=== PATIENT | female | born 1950 | race Caucasian/White ===

== ENCOUNTER → 2024-01-12 11:07 | Outpatient (REF) | payer MEDICARE, OTHER, SELFPAY | LOC: RAD 11:07 | PROVIDERS: ATTENDING PHYSICIAN Physician Assistant; FAMILY PHYSICIAN Nurse Practitioner | DX: I73.9 Peripheral vascular disease, unspecified (principal) | CPT/HCPCS: 93922; 93925; 93978 ==

== ENCOUNTER 2024-01-30 19:37 | Inpatient (IN) | payer MEDICARE, OTHER, SELFPAY ==
[2024-01-25 09:18] VITALS: BMI 33.5
--- NOTE | 2024-01-25 13:33 | PTCARENOTE ---
Patients 01/24 EKG abnormal- reviewed by Dr. Lyons- no additional interventions required
[2024-01-30] VITALS (15 sets, daily range): BP systolic 94–138; BP diastolic 51–91
[2024-01-30] MEDS: NSS 270 ML IV (10:47)
--- NOTE | 2024-01-30 12:52 | PTCARENOTE ---
Pt requesting something to drink since there is a delay for her procedure. Dr Lyons made aware and states pt can 8 ounces of water to drink quickly but not sipped over hours. Pt given 8 ounces of water and is currently drinking. Will continue to
monitor.
[2024-01-30 16:09] LABS: Glucose - Point of Care 112 mg/dl (70-99)
--- NOTE | 2024-01-30 17:22 | W.SUR.PREOP ---
Pre-Operative Surgical Note
-
I have examined this patient prior to the performance of the scheduled procedure.
The patient's condition is unchanged from the time of the current History and
Physical and the patient is able to undergo the scheduled procedure.
--- NOTE | 2024-01-30 18:00 | W.IMMPOSTOP ---
Surgical Immed Post Op Note
-
Primary Surgeon: Daryl Minaya III, MD
Assisting Surgeon: Jim Robert MD
Pre-op Diagnosis: L SFA in-stent restenosis
Post-op Diagnosis: L SFA in-stent restenosis
Procedure Performed: L SFA balloon angioplasty
Anesthesia Type: Light Sedation
Specimen / Cultures: NA
Estimated Blood Loss: 2cc
Complications: NA
Operative Findings:
Access obtained via right femoral artery. Wire, catheter, 6FR sheath passed serially into contralateral left common femoral artery via fluoroscopic guidance. SFA with in-stent restenosis as suspected. [id number] & [id number] drug-coated balloon
expanded to nominal pressures for 2 minutes along entire stent length. Post-op arteriogram with brisk flow and patent artery.
[2024-01-30 18:34] LABS: Glucose - Point of Care 115 mg/dl (70-99)
[2024-01-30] MEDS: NSS 1000 IV (18:55)
--- NOTE | 2024-01-30 20:00 | PTCARENOTE ---
Pt from PACU. SB. VSS. Denies pain. Alert and oriented. Right groin c/d/i no evidence of hematoma. DP pulses via doppler. All extremities cool, and good sensation. Assessment per nursing flowsheet. Purewick placed d/t stress incontinence and
urgency at baseline with bedrest x6h.
--- NOTE | 2024-01-30 20:08 | OR.RPT ---
Operative Report
Operative Report
Date of Operation: 01/30/2024
Pre Op Diagnosis: Peripheral arterial occlusive disease with in-stent restenosis of left superficial femoral artery
Post Op Diagnosis: Peripheral arterial occlusive disease with in-stent restenosis of left superficial femoral artery
Procedure:
1.) Drug-coated balloon angioplasty to diffuse in-stent restenosis involving the left superficial femoral artery (overlapping 5 mm x 150 mm & 5 mm x 120 mm iNPACT drug coated balloons)
2.) Diagnostic aortobiiliac arteriogram
3.) Diagnostic left lower extremity arteriogram
4.) Ultrasound-guided percutaneous access to the right common femoral artery
Surgeon: Daryl Minaya III, MD
Correctional Supervisor: Jim Robert MD PGY-1
Anesthesia: Sedation with local
Fluoroscopy:
10.2 min
183 mGy
42.62 Gy.cm2
Complications: None
Estimated Blood Loss: Less than 20 cc
History and Indications for Procedure: 73-year-old female with known peripheral arterial occlusive disease and duplex findings consistent with in-stent restenosis of the left superficial femoral artery stents
Procedure in Detail: Barbara Adams was correctly identified and placed supine on the operating table. After adequate induction of anesthesia the bilateral groins were prepped and draped in the usual sterile fashion. A timeout was performed with the
nursing and anesthesia staff confirming the patient's identity as well as the nature and laterality of the procedure.
The right common femoral artery was identified under ultrasound guidance. The artery was patent. The superior and inferior aspects of the femoral head were identified with radiographic guidance and marked at the skin level. The proposed puncture
site was infiltrated with local anesthesia. We saved a copy of the ultrasound image to the medical record. Under ultrasound guidance we accessed the right common femoral artery with a micropuncture needle and upsized to a 5 Fr sheath over a [employer]
wire. The wire and a ShepherBildero hook flush catheter were advanced into the distal abdominal aorta and a diagnostic aorto-biiliac arteriogram was performed:
AORTO-ILIAC ARTERIOGRAM:
Aorta: Patent with no significant stenosis identified
Right common iliac artery: Heavily calcified, patent with diffuse moderate stenosis identified.
Right external iliac artery: Patent with no significant stenosis identified
Left common iliac artery: Patent stent with no significant stenosis identified
Left external iliac artery: Patent with no significant stenosis identified
Under roadmap guidance using a Glidewire and the SheIguanaFixerBildero hook catheter we selected the left common iliac artery and then the external iliac artery. A catheter was tracked up and over the aortic bifurcation and placed in the distal external iliac
artery. A diagnostic left lower extremity arteriogram was then performed which demonstrated the following:
LEFT LOWER EXTREMITY:
Common femoral artery: Patent with no significant stenosis identified
Profunda femoral artery: Patent with no significant stenosis identified
Superficial femoral artery: Patent. Proximal unstented creek artery patent with no stenosis identified. Stented portions of the SFA demonstrated diffuse areas of high-grade in-stent restenosis.
Popliteal artery: Area of calcified plaque identified but the artery is patent with no significant stenosis identified.
Intact three-vessel runoff visualized to the distal calf.
ENDOVASCULAR INTERVENTION: Systemic heparin was administered. Exchanged out for a 6 Fr 45 cm sheath over a Storq wire. Selected the superficial femoral artery under roadmap guidance with Quickcross catheter and glidewire. The in-stent restenosis was
crossed with a Quickcross and Glidewire. The wire and catheter were advanced into the popliteal artery. Exchanged out for a Storq wire. A 5 mm x 150 mm drug-coated angioplasty balloon was placed across the mid to distal in-stent stenosis under
roadmap guidance. The balloon was inflated to nominal pressure, held in place for 3 minutes and then deflated and removed over the wire. A 5 mm x 120 mm drug-coated angioplasty balloon was then positioned across the mid to proximal in-stent
stenosis under roadmap guidance. The balloon was inflated to nominal pressure, held in place for 3 minutes and then deflated and removed over the wire.
COMPLETION ARTERIOGRAM: Excellent technical result. Brisk flow throughout the left lower extremity. Widely patent left superficial femoral artery stents with no significant residual stenosis identified. Intact three-vessel tibial artery runoff
identified.
Satisfied with this result we concluded the procedure. The sheath tip was pulled back into the right external iliac artery. Protamine was administered. The sheath was pulled and direct manual pressure was held over the puncture site. Hemostasis
was achieved. A sterile dressing was applied.
The patient tolerated the procedure well and was taken to the recovery area in stable condition.
Attestation: I was present and responsible for the entire procedure.
Signed:
Daryl Minaya III, MD
[facility] Vascular Surgery
[phone] (cell)
[2024-01-30] MEDS: LIPITOR 40 MG PO (21:57)
[2024-01-30] MEDS: NEURONTIN 300 MG PO (21:58)
[2024-01-30] MEDS: ASPIR LOW (ENTERIC COATED) 81 MG PO (21:58)
[2024-01-30] MEDS: HEPARIN 5000 UNITS SC (23:44)
[2024-01-31 03:48] VITALS: BP 132/55
[2024-01-31] MEDS: SYNTHROID 75 MCG PO (07:30)
[2024-01-31] MEDS: ZESTRIL 10 MG PO (07:36)
[2024-01-31] MEDS: NEURONTIN 300 MG PO (07:36)
[2024-01-31] MEDS: HEPARIN 5000 UNITS SC (07:37)
[2024-01-31] MEDS: ZOLOFT 50 MG PO (07:37)
[2024-01-31] MEDS: DITROPAN 5 MG PO (07:37)
[2024-01-31] MEDS: PLAVIX 75 MG PO (07:37)
[2024-01-31 07:43] VITALS: BP 128/64
--- NOTE | 2024-01-31 11:24 | CM ---
Chart reviewed. Patient is independent of ADLS, lives alone in a apartment, [address], ambulates with a SPC and rollator. Patient is not current with VN. Plan is for the patient to return home, no needs.
--- NOTE | 2024-01-31 13:24 | W.DCSUMMARY ---
Discharge Summary
Discharge Data
Date of Admission: 01/30/24
Date of Discharge: 01/31/24
-
Pending Results: No
Hospital Course
Consultants: None
Allergies: Vicodin, oxycodone
Procedure with date: Drug-coated balloon angioplasty to diffuse in-stent restenosis involving the left superficial femoral artery (overlapping 5 mm x 150 mm & 5 mm x 120 mm iNPACT drug coated balloons), Diagnostic aortobiiliac arteriogram,
Diagnostic left lower extremity arteriogram, Ultrasound-guided percutaneous access to the right common femoral artery on 01/30/24
History of present illness: The patient is a 73 -year-old female with multiple medical conditions including: diabetes, hypothyroid, hypertension, and PAD. Patient presented on 01/30/2024 for scheduled procedure with Dr. Minaya. Patient presented at
baseline health with no reports of recent illness or trauma.
Hospital Course: Briefly, the patient underwent scheduled diagnostic left lower EXTR arteriogram with balloon angioplasty without complications, and recovered in PACU. Patient's procedure was significantly delayed due to urgent/emergent prior OR
cases thus eligible discharge time we have been in the middle of the night. For patient's safety decision was made for patient to stay overnight with discharge following morning. POD #1 (01/31/2024) Patient with no complaints. Right groin clean,
dry, and intact. Patient deemed stable for discharge.
Prescriptions and follow up appointment are included in the DC summary gas leak tester note. All instructions were given to the patient in both written and verbal form and the patient expressed understanding.
Discharge Plan
-
Patient Disposition: Home (Routine Discharge)
Discharge Diagnosis/Procedures: Left lower extremity arteriogram with intervention
Condition: Good
Diet: As tolerated
Activity: No strenuous activity
Driving Restrictions: No driving for 24 hours
Bathing Restrictions: After dressing removed
Others Tests: Your repeat ultrasound is scheduled on03/05/2024 at 3pm here at [facility].
Wound Care: Remove dressing this afternoon, can shower after dressing removal.
Stand Alone Forms: DC Instr - Vascular OR
Referrals:
Sarahi Harris CRNP [Family Provider] -
Katiuska Sanchez CRNP [Specified Professional Personl] - 03/06/24 9:15 am
Prescriptions:
Continued
levothyroxine 75 MCG tablet
75 mcg PO DAILY AT 0700
aspirin 81 MG tablet,delayed release (DR/EC)
81 mg PO HS
gabapentin 300 MG capsule
300 mg PO BID
sertraline 50 MG tablet
50 mg PO DAILY
clopidogrel 75 MG tablet
75 mg PO DAILY Qty: 60 0RF
lisinopril 10 mg Tablet
10 mg PO DAILY
oxybutynin chloride 5 mg Tablet
5 mg PO DAILY
atorvastatin 40 mg Tablet
40 mg PO HS
valerian root 450 mg Capsule
450 mg PO HSPRN PRN (Reason: Insomnia)
Discharge Orders:
Discharge Patient (As Directed); Ordered 01/31/24
Ordered By: Elli Anderson
Care Plan Goals
Care Plan Goals:
Problem: Readiness for enhanced knowledge related to diagnosis and treatment plan
Goal: Understand your diagnosis and treatment plan needs, including medications if applicable.
Instructions: Know your diagnosis, underlying causes and treatment plan options, including medications if applicable. Consult with your health care team to learn about your diagnosis and treatment plan, including medications if applicable.
Discharge Date and Time
Discharge Date/Time: 01/31/24 10:06
Print Language: DOMINICAN
== END 2024-01-31 10:06 | disposition home or self-care (01) | DRG 254 ==
LOC: IVU 19:37
PROVIDERS: ADMITTING PHYSICIAN Surgery Vascular Surgery; FAMILY PHYSICIAN Nurse Practitioner
PROC: 047L3Z1 Dilation of Left Femoral Artery using Drug-Coated Balloon, Percutaneous Approach (ICD-10-PCS; 2024-01-30)
DX: T82.856A Stenosis of peripheral vascular stent, initial encounter (principal); Y71.8 Miscellaneous cardiovascular devices associated with adverse incidents, not elsewhere classified; I70.212 Atherosclerosis of native arteries of extremities with intermittent claudication, left leg
CPT/HCPCS: 37224; 75625; 75716; 76937; 82962; C1769; C1894; C2623; Q9967

== ENCOUNTER → 2024-03-05 15:06 | Outpatient (REF) | payer MEDICARE, OTHER, SELFPAY | LOC: DHVS 15:06 | PROVIDERS: ATTENDING PHYSICIAN Surgery Vascular Surgery; FAMILY PHYSICIAN Nurse Practitioner | DX: I73.9 Peripheral vascular disease, unspecified (principal) | CPT/HCPCS: 93922; 93925 ==

== ENCOUNTER → 2024-04-05 10:25 | Outpatient (REF) | payer MEDICARE, OTHER, SELFPAY ==
[2024-04-05 12:17] LABS: % Basophils 1.4 % (0-2); % Eosinophils 4.2 % (0-6); % Immature Granulocytes 0.4 % (0-0.5); % Lymphocytes 18.4 % (20.5-51.1); % Monocytes 7.1 % (1.7-9.3); % Neutrophils 68.5 % (42.2-75.2); Absolute Basophils 0.1 10^3/uL (0-0.2); Absolute Eosinophils 0.3 10^3/uL (0-0.7); Absolute Lymphocytes 1.5 10^3/uL (1.2-3.4); Absolute Monocytes 0.6 10^3/uL (0.1-0.6); Absolute Neutrophils 5.5 10^3/uL (1.4-6.5); Hematocrit 46.9 % (37.0-47.0); Hemoglobin 15.2 g/dL (12.0-16.0); Mean Corp Hgb Conc. 32.4 g/dL (33.0-37.0); Mean Corpuscular Hgb 29.2 pg (27.0-31.0); Mean Corpuscular Volume 90.2 fL (81.0-99.0); Mean Platelet Volume 10.9 fL (7.4-10.4); Nucleated Red Blood Cells % 0 %; Platelet Count 252 10^3/uL (130-400); Red Cell Dist. Width 13.8 % (11.5-14.5); White Blood Cell Count 8.1 10^3/uL (4.8-10.8)
[2024-04-05 12:29] LABS: ALT (SGPT) 18 U/L (0-35); AST (SGOT) 24 U/L (14-36); Albumin 4.4 g/dl (3.5-5.0); Alkaline Phosphatase 134 U/L (38-126); Blood Urea Nitrogen 14 mg/dl (7-17); Calcium 9.9 mg/dl (8.4-10.2); Carbon Dioxide 32 mmol/L (22-30); Chloride 101 mmol/L (98-107); Glucose 135 mg/dl (70-99); HDL Cholesterol 44 mg/dl; LDL Cholesterol, Calculated 181 mg/dl; Potassium 4.3 mmol/L (3.5-5.1); Sodium 140 mmol/L (135-145); Total Bilirubin 0.7 mg/dl (0.2-1.3); Total Cholesterol 256 mg/dl (50-199); Total Protein 7.5 g/dl (6.3-8.2); Triglyceride 157 mg/dl (10-149); Very Low Density Lipoprotein 31 mg/dl (0-30); eGFR > 60.00
[2024-04-05 12:42] LABS: Microalbumin/creatinine Ratio 18.2 mg/g
[2024-04-05 14:00] LABS: Glycohemoglobin (HgbA1c) 6.7 % (4.0-5.6)
== END ==
LOC: HWLAB 10:25
PROVIDERS: ATTENDING PHYSICIAN Nurse Practitioner
DX: E11.9 Type 2 diabetes mellitus without complications (principal); R80.9 Proteinuria, unspecified; Z01.818 Encounter for other preprocedural examination; E78.5 Hyperlipidemia, unspecified
CPT/HCPCS: 36415; 80053; 80061; 82043; 82570; 83036; 84443; 85025

== ENCOUNTER → 2025-04-17 10:48 | Outpatient (REF) | payer MEDICARE, OTHER, SELFPAY ==
[2025-04-17 15:52] LABS: % Basophils 1.1 % (0-2); % Eosinophils 2.7 % (0-6); % Immature Granulocytes 0.1 % (0-0.5); % Lymphocytes 22.4 % (20.5-51.1); % Monocytes 6.8 % (1.7-9.3); % Neutrophils 66.9 % (42.2-75.2); Absolute Basophils 0.1 10^3/uL (0-0.2); Absolute Eosinophils 0.3 10^3/uL (0-0.7); Absolute Lymphocytes 2.4 10^3/uL (1.2-3.4); Absolute Monocytes 0.7 10^3/uL (0.1-0.6); Absolute Neutrophils 7.1 10^3/uL (1.4-6.5); Hematocrit 47.4 % (37.0-47.0); Hemoglobin 15.6 g/dL (12.0-16.0); Mean Corp Hgb Conc. 32.9 g/dL (33.0-37.0); Mean Corpuscular Hgb 29.5 pg (27.0-31.0); Mean Corpuscular Volume 89.8 fL (81.0-99.0); Mean Platelet Volume 10.6 fL (7.4-10.4); Nucleated Red Blood Cells % 0 %; Platelet Count 313 10^3/uL (130-400); Red Blood Cell Count 5.28 10^6/uL (4.20-5.40); Red Cell Dist. Width 13.4 % (11.5-14.5); White Blood Cell Count 10.6 10^3/uL (4.8-10.8)
[2025-04-17 15:56] LABS: ALT (SGPT) 32 U/L (0-35); AST (SGOT) 28 U/L (14-36); Albumin 4.7 g/dl (3.5-5.0); Alkaline Phosphatase 133 U/L (38-126); Blood Urea Nitrogen 14 mg/dl (7-17); Carbon Dioxide 30 mmol/L (22-30); Chloride 105 mmol/L (98-107); Glucose 144 mg/dl (70-99); HDL Cholesterol 54 mg/dl; LDL Cholesterol, Calculated 217 mg/dl; Potassium 4.3 mmol/L (3.5-5.1); Sodium 140 mmol/L (135-145); Total Bilirubin 0.7 mg/dl (0.2-1.3); Total Cholesterol 301 mg/dl (50-199); Total Protein 8.1 g/dl (6.3-8.2); Triglyceride 150 mg/dl (10-149); Very Low Density Lipoprotein 30 mg/dl (0-30); eGFR > 60.00
[2025-04-17 16:30] LABS: Microalbumin, Random Urine 29.2 mg/dl (0.6-1.7); Microalbumin/creatinine Ratio 139.6 mg/g
[2025-04-17 16:57] LABS: Free T4 1.16 ng/dl (0.78-2.19)
[2025-04-18 09:00] LABS: Glycohemoglobin (HgbA1c) 6.4 % (4.0-5.6)
== END ==
LOC: HWLAB 10:48
DX: E11.9 Type 2 diabetes mellitus without complications (principal); E78.2 Mixed hyperlipidemia; R80.9 Proteinuria, unspecified; I10 Essential (primary) hypertension; I73.9 Peripheral vascular disease, unspecified; E06.3 Autoimmune thyroiditis
CPT/HCPCS: 36415; 80053; 80061; 82043; 82570; 83036; 84439; 84443; 85025

== ENCOUNTER → 2025-05-09 11:43 | Outpatient (REF) | payer MEDICARE, OTHER, SELFPAY | LOC: RAD 11:43 | PROVIDERS: ATTENDING PHYSICIAN Registered Nurse | DX: I73.9 Peripheral vascular disease, unspecified (principal) | CPT/HCPCS: 93922; 93925 ==